=== PATIENT | female | born 1965 | race Caucasian/White ===

== ENCOUNTER 2017-05-30 17:24 | Emergency (ER) | payer OTHER ==
[~2017-05-30] VITALS: Ht 167.6 cm; Wt 75.0 kg
[~2017-05-30 17:24] MED LIST: BUPR100T4 PO; HYDR25TA PO; LISI-660 PO; OMEP20CA4; feso4
[2017-05-30] MEDS ORDERED: TOPI25 PO (17:53)
[2017-05-30] MEDS ORDERED: PRED5 PO (17:53)
[2017-05-30] MEDS ORDERED: TraMADol HCL 50 MG TABLET PO ONE (19:00)
[2017-05-30 19:28] VITALS: BP 122/64
== END 2017-05-30 19:28 | disposition home or self-care (01) ==
LOC: EMS 17:25
DX: M25.512 Pain in left shoulder (principal); Z79.899 Other long term (current) drug therapy
CPT/HCPCS: 99283